=== PATIENT | male | born 1965 | race Asian ===

== ENCOUNTER 2023-10-06 15:50 | Emergency (ER) | payer BC ==
[~2023-10-06] VITALS: Ht 177.8 cm; Wt 75.3 kg
[2023-10-06 17:38] VITALS: BP 118/80; O2SAT 99
== END 2023-10-06 17:39 | disposition home or self-care (01) ==
LOC: ER 15:56
DX: S81.811D Laceration without foreign body, right lower leg, subsequent encounter (principal); Z88.5 Allergy status to narcotic agent; X58.XXXD Exposure to other specified factors, subsequent encounter
CPT/HCPCS: A4606; A4663